=== PATIENT | male | born 1995 | race Caucasian/White ===

== ENCOUNTER 2024-08-26 10:16 | Emergency (ER) | payer OTHER ==
[~2024-08-26] VITALS: Ht 193 cm; Wt 70.5 kg
[2024-08-26] MEDS: ibuprofen tablet 400 MG TABLET PO ONE (12:00)
[2024-08-26] MEDS: LIDOcaine 5% patch TP ONE (12:01)
[2024-08-26 12:23] VITALS: BP 124/74; PULSE 82; RESP 16; TEMP 98.6; O2SAT 97
== END 2024-08-26 12:24 | disposition home or self-care (01) ==
LOC: ER 10:17
DX: M54.50 Low back pain, unspecified (principal); V40.9XXA Unspecified car occupant injured in collision with pedestrian or animal in traffic accident, initial encounter; Y93.89 Activity, other specified; Y92.89 Other specified places as the place of occurrence of the external cause; Y99.8 Other external cause status
CPT/HCPCS: 99283